=== PATIENT | female | born 2000 | race Two or more races ===

== ENCOUNTER 2024-02-13 16:35 | Inpatient (IN) | payer OTHER ==
[~2024-02-13] VITALS: Ht 152.4 cm; Wt 56.5 kg
[2024-02-13] MEDS ORDERED: ZOLO50TA PO (16:53)
[2024-02-13 17:10] LABS: HEMATOCRIT 44.2 % (36.0-47.0); HEMOGLOBIN 14.2 g/dl (12.0-15.5); MEAN CORPUSCULAR HGB CONC 32.1 g/dl (32.0-36.5); PLATELET COUNT, AUTOMATED 342 10^3/uL (150-450); RED BLOOD COUNT 5.08 10^6/uL (4.00-5.40); WHITE BLOOD COUNT 10.8 10^3/uL (4.0-10.0)
[2024-02-13 17:37] LABS: ETHYL ALCOHOL (ETHANOL) < 0.003 % (0.000-0.010)
[2024-02-13 17:39] LABS: ALBUMIN 4.2 G/DL (3.2-5.2); ALKALINE PHOSPHATASE 91 U/L (35-104); ALT/SGPT < 9 U/L (7.0-40); AST/SGOT < 8 U/L (<34); BILIRUBIN,DIRECT 0.2 MG/DL (<0.4); BILIRUBIN,TOTAL 0.4 MG/DL (0.3-1.2); BLOOD UREA NITROGEN 10 MG/DL (9-23); CALCIUM LEVEL 9.7 MG/DL (8.5-10.1); CARBON DIOXIDE LEVEL 28 MMOL/L (20-31); CHLORIDE LEVEL 106 MMOL/L (98-107); CREATININE FOR GFR 0.87 MG/DL (0.55-1.30); GLOMERULAR FILTRATION RATE > 60.0 (>60); GLUCOSE, FASTING 89 MG/DL (60-100); POTASSIUM SERUM 3.9 MMOL/L (3.5-5.1); SALICYLATE LEVEL < 3.0 MG/DL (<30); SODIUM LEVEL 139 MMOL/L (136-145); TOTAL PROTEIN 8.1 G/DL (5.7-8.2)
[2024-02-13 17:41] LABS: THYROID STIMULATING HORMONE 0.848 uIU/ML (0.55-4.78)
[2024-02-13 17:42] LABS: HCG, SERUM QUALITATIVE NEGATIVE (NEGATIVE)
[2024-02-13 17:47] LABS: AMPHETAMINES LEVEL URINE NEGATIVE (NEGATIVE); BARBITURATES URINE NEGATIVE (NEGATIVE); BENZODIAZEPINES URINE NEGATIVE (NEGATIVE); COCAINE METABOLITE URINE NEGATIVE (NEGATIVE)
[2024-02-13 17:48] LABS: CANNABINOIDS URINE NEGATIVE (NEGATIVE); METHADONE URINE NEGATIVE (NEGATIVE); OPIATES URINE NEGATIVE (NEGATIVE); PHENCYCLIDINE URINE NEGATIVE (NEGATIVE)
[2024-02-13] MEDS ORDERED: HOME MED LIST COMPLETE! XX SCH (18:40)
[2024-02-13] MEDS ORDERED: MOM 30ML SUSPENSION UDC PO PRN (20:20)
[2024-02-13] MEDS ORDERED: MAALOX 30 ML SUSP *UDC PO PRN (20:20)
[2024-02-13] MEDS ORDERED: IBUPROFEN 400MG TAB PO PRN (20:20)
[2024-02-13] MEDS ORDERED: ACETAMINOPHEN 325 MG TAB PO PRN (20:20)
[2024-02-13] MEDS ORDERED: diphenhydrAMINE 25MG CAP PO PRN (20:20)
[2024-02-13 22:34] VITALS: BP 102/66; TEMP 97.1; O2SAT 100
[2024-02-13] MEDS: traZODone 50 MG TAB PO PRN (22:44)
[2024-02-14 06:31] VITALS: BP 105/58; TEMP 97.7; O2SAT 99
[2024-02-14] MEDS: FLUTICASONE PROP 0.05% NASAL SPRAY 16 GM (FLONASE) NARES SCH (15:10)
[2024-02-14] MEDS: SODIUM CHLORIDE NASAL 0.65% SPRAY BTL (OCEAN) SCH (15:10)
[2024-02-14 15:23] VITALS: BP 108/69; TEMP 98.1; O2SAT 100
[2024-02-14] MEDS: CETIRIZINE (ZyrTEC) 10 MG TAB PO ONE (15:41)
[2024-02-15] MEDS ORDERED: Sodium Chloride Nasal Spray (05:28)
[2024-02-15] MEDS ORDERED: CETI10TA PO (05:28)
[2024-02-15] MEDS ORDERED: ZOLO100T PO (05:28)
[2024-02-15] MEDS ORDERED: FLUTISP NARES (05:28)
[2024-02-15 06:24] VITALS: BP 101/63; TEMP 97.1; O2SAT 100
[2024-02-15] MEDS: CETIRIZINE (ZyrTEC) 10 MG TAB PO SCH (08:47)
[2024-02-15] MEDS: SERTRALINE 100 MG TAB PO SCH (08:47)
[2024-02-15] MEDS ORDERED: TRAZ-252 PO (11:27)
== END 2024-02-15 11:31 | disposition home or self-care (01) | DRG 882 ==
LOC: M ED 16:35 → M ED INP 20:20 → M PSY 21:53
PROVIDERS: ADMIT Psychiatry & Neurology Psychiatry; ATTEND Psychiatry & Neurology Psychiatry
DX: F43.22 Adjustment disorder with anxiety (principal); Z63.0 Problems in relationship with spouse or partner; Z91.51 Personal history of suicidal behavior; F17.200 Nicotine dependence, unspecified, uncomplicated; Z79.899 Other long term (current) drug therapy; Z81.8 Family history of other mental and behavioral disorders